=== PATIENT | male | born 1960 | race African-American/Black ===

== ENCOUNTER 2025-02-19 11:40 | Emergency (ER) | payer OTHER ==
[~2025-02-19] VITALS: Ht 175.3 cm; Wt 76.7 kg
[2025-02-19 11:48] VITALS: TEMP 98.2
[2025-02-19 12:10] LABS: PLATELET COUNT (AUTO) 211 K/uL (150-450); RED BLOOD CELL COUNT(AUTO) 4.44 MIL/uL (4.5-6.0); RED CELL DISTRIBUTION WIDTH 14.2 % (11.5-15.0); WHITE BLOOD COUNT (AUTO) 9.0 K/uL (4.3-11.0)
[2025-02-19 12:16] LABS: CALCIUM, SERUM 8.6 mg/dL (8.5-10.1); CREATININE 1.2 mg/dL (0.6-1.3); SODIUM SERUM 139.0 mmol/L (136-145); UREA NITROGEN, BLOOD 18.0 mg/dL (7-18)
[2025-02-19] MEDS ORDERED: DOXY100C2 PO (13:19)
[2025-02-19] MEDS ORDERED: CEPH-570 PO (13:19)
[2025-02-19 13:57] VITALS: BP 135/80; O2SAT 97
== END 2025-02-19 13:30 | disposition home or self-care (01) ==
LOC: ER 11:43
DX: T81.30XA Disruption of wound, unspecified, initial encounter (principal); M06.9 Rheumatoid arthritis, unspecified; Y84.8 Other medical procedures as the cause of abnormal reaction of the patient, or of later complication, without mention of misadventure at the time of the procedure; Y92.89 Other specified places as the place of occurrence of the external cause
CPT/HCPCS: 36415; 73630-TC; 80048-TC; 85025-TC; 85652-TC; 86140-TC